=== PATIENT | male | born 1975 | race Caucasian/White ===

== ENCOUNTER 2018-02-13 13:06 | Emergency (ER) | payer OTHER ==
[~2018-02-13] VITALS: Ht 172.7 cm; Wt 90.7 kg
[2018-02-13] MEDS ORDERED: NORCO 5-325 TA1 EACH PO (14:06)
[2018-02-13] MEDS ORDERED: LEVAQUIN 500 M500 M1 PO (14:06)
[2018-02-13 15:07] VITALS: BP 135/73
== END 2018-02-13 15:08 | disposition home or self-care (01) ==
LOC: ER 13:06
DX: S91.332A Puncture wound without foreign body, left foot, initial encounter (principal); W22.09XA Striking against other stationary object, initial encounter; Y93.89 Activity, other specified; Y92.89 Other specified places as the place of occurrence of the external cause; Y99.8 Other external cause status